=== PATIENT | female | born 1945 | race Caucasian/White ===

== ENCOUNTER → 2016-11-25 | Outpatient (CLI) | payer MEDICARE ==
[~2016-11-25] MED LIST: ALPRAZOLAM PO; ASPIRIN PO; BP PILL; IMODIUM2 MG PO; LIPITOR PO; LORTAB 5/500 TA1 TA1 PO; MACROBID100 MG DOB; NEURONTIN100 MG PO; NEXIUM PO; PHENERGAN PO; PLAVIX PO; STOOL SOFTENER100 M1; TOPROL XL PO
--- NOTE | ~2016-11-25 | US85 ---
[facility] RADIOLOGY TEXT RESULTS PATIENT: EMELINA KINGSLEY LOCATION: CNIV : 49 UNIT #: [id number] AGE: [address]: Ciara Traore MD SEX: F ORDER DR: [id number] [facility] [address] [place], [place] [address] [id number] O MR#: [id number] Acc #: [id number] NAME: EMELINA KINGSLEY : 1945 SEX: F STUDY DATE/TIME: 11/25/2016 9:25 UNIT: CNIV ROOM: STUDY DESCRIPTION: [facility] [facility] Attending Physician: Ciara Traore M.D., Ph.D. Referring Physician: Ciara Traore M.D., Ph.D. Ordering Physician: Ciara Traore M.D., Ph.D. Primary Care Physician: Mekhi Abarca M.D. MEDICAL IMAGING REPORT This report is preliminary unless electronic signature is present EXAM Left lower extremity Doppler venous ultrasound. DATE: 11/25/16 HISTORY Left lower extremity swelling/edema for two weeks. Previous history of deep venous thrombosis. COMPARISON Left lower extremity Doppler venous ultrasound 03/24/2012 TECHNIQUE Venous ultrasound examination of the left lower extremity was performed using grayscale, spectral Doppler and color flow Doppler imaging. FINDINGS The examination is negative. There is no evidence of left lower extremity deep venous thrombus from the groin to the lower calf. Visualized greater saphenous vein is also patent. IMPRESSION Negative examination. No evidence of left lower extremity deep venous thrombosis. Dictated by... Susana Orellana M.D. THIS IS AN ELECTRONICALLY VERIFIED REPORT Susana Orellana M.D. at 11/26/2016 7:11 AM [facility] RADIOLOGY TEXT RESULTS PATIENT: EMELINA KINGSLEY LOCATION: CNIV : 49 UNIT #: [id number] AGE: [address]: Ciara Traore MD SEX: F ORDER DR: TD: 11/25/2016 10:55 JOB #: [id number] MEDICAL IMAGING REPORT Page 1 of 1 COPY
== END | disposition home or self-care (01) ==
LOC: CNIV 08:45
DX: M31.1 Thrombotic microangiopathy (principal); R60.0 Localized edema
CPT/HCPCS: 93971